=== PATIENT | male | born 1965 | race Caucasian/White ===

== ENCOUNTER 2019-11-14 07:18 | Day surgery (SDC) | payer BC, OTHER ==
[~2019-11-14 07:18] MED LIST: Lactated Ringers 1,000 ML IV SCH; Sodium Chloride 0.9% 10 ML Syringe FLUSH PRN
[2019-11-14] MEDS ORDERED: Lidocaine 1% PF 2 ML SDV INJECT ONE (07:19)
[2019-11-14] MEDS ORDERED: Propofol 200 MG/20 ML SDV IV ONE (07:19)
--- NOTE | 2019-11-14 08:52 | PCM.OPNOTE ---
- General Post-Op/Procedure Note Date of Surgery/Procedure: 11/14/19 Operative Procedure(s): c scope with bx Findings: sigmoid diverticulosis Pre Op Diagnosis: screening Post-Op Diagnosis: sigmoid diverticulosis Anesthesia Technique: MAC Primary Surgeon: Waqar Mercado Anesthesia Provider: Herb Brown Pathology: none Complications: None Condition: Good Free Text/Narrative:: see dictation repeat in 10 yrs
--- NOTE | 2019-11-14 09:39 | OR ---
DATE OF OPERATION: 11/14/2019 SURGEON: Waqar Mercado MD PROCEDURE PERFORMED: Colonoscopy. PREOPERATIVE DIAGNOSIS: Need for screening colonoscopy. POSTOPERATIVE DIAGNOSIS: Scattered diverticulosis. INDICATIONS FOR PROCEDURE: This is a 54-year-old white male, presents for screening colonoscopy, was offered and accepted same. DESCRIPTION OF OPERATION: After an excellent IV sedation was administered, digital rectal exam was performed. No marked abnormality was noted. Flexible colonoscope was inserted and advanced to the cecum. The prep was excellent. The following findings were noted. Ascending colon, unremarkable. Transverse colon, unremarkable. Descending colon, unremarkable. Sigmoid, occasional diverticula. Rectum and anus, unremarkable. The patient tolerated the procedure well. RECOMMENDATIONS: Repeat colonoscopy in 10 years. /[id number] /MODL
== END 2019-11-14 08:23 | disposition home or self-care (01) ==
LOC: FB.SDS 07:18
PROVIDERS: ATTEND Surgery
DX: Z12.11 Encounter for screening for malignant neoplasm of colon (principal); K57.30 Diverticulosis of large intestine without perforation or abscess without bleeding; I10 Essential (primary) hypertension; E78.5 Hyperlipidemia, unspecified; Z98.890 Other specified postprocedural states; Z79.899 Other long term (current) drug therapy
CPT/HCPCS: J2001; J2704; J7120